=== PATIENT | male | born 1960 | race African-American/Black ===

== ENCOUNTER 2017-06-03 10:00 | Emergency (ER) | payer OTHER ==
[~2017-06-03] VITALS: Ht 177.8 cm; Wt 68.0 kg
[2017-06-03 10:30] VITALS: BP 129/91
--- NOTE | 2017-06-03 16:35 | NUR ---
PATIENT LEFT WITHOUT BEING SEEN BY DR. CRAVEN. NO FURTHER CARE PROVIDED FOR PATIENT.
== END 2017-06-03 16:35 | disposition left against medical advice (07) ==
LOC: MED 10:00
DX: R30.9 Painful micturition, unspecified (principal); Z53.21 Procedure and treatment not carried out due to patient leaving prior to being seen by health care provider

== ENCOUNTER 2017-09-12 10:58 | Emergency (ER) | payer OTHER ==
[~2017-09-12] VITALS: Ht 175.3 cm; Wt 63.5 kg
[2017-09-12 11:04] VITALS: BP 198/118
[2017-09-12 11:37] LABS: HEMATOCRIT 45.9 % (36-52); HEMOGLOBIN 14.5 g/dL (12.0-18.0); MEAN CORPUSCULAR HEMOGLOBIN 28 pg (27-31); MEAN CORPUSCULAR HGB CONC 32 g/dL (33-37); MEAN CORPUSCULAR VOLUME 88 fL (80-94); PLATELET COUNT (AUTO) 152 K/uL (140-450); RED CELL DISTRIBUTION WIDTH 13.4 % (11.6-13.7); WHITE BLOOD COUNT (AUTO) 5.2 K/uL (4.8-10.8)
--- NOTE | 2017-09-12 11:43 | NUR ---
Patient taken back to lobby from CT via wheelchair.
[2017-09-12 11:50] LABS: ANION GAP 8.6 (8-16); CARBON DIOXIDE 29.7 mmol/L (21-32); CREATININE 1.1 mg/dL (0.7-1.3); POTASSIUM 3.3 mmol/L (3.5-5.1)
[2017-09-12 11:51] LABS: LYMPHOCYTES % (MANUAL) 35 % (20-46); MONOCYTES % (MANUAL) 15 % (5-12)
[2017-09-12 11:52] LABS: EOSINOPHILS % (MANUAL) 2 % (0-4)
--- NOTE | 2017-09-12 11:56 | NUR ---
Patient taken to bed 09 via wheelchair.
[2017-09-12 11:57] LABS: ALBUMIN 3.6 g/dL (3.4-5.0); TOTAL BILIRUBIN 0.8 mg/dL (0.0-1.0)
--- NOTE | 2017-09-12 12:00 | NUR ---
Dr. Sanchez evaluating patient at bedside.
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
[2017-09-12] MEDS ORDERED: LIDOCAINE 1% 500 MG/50 ML VIAL INJ SCH (12:05)
[2017-09-12] MEDS ORDERED: POTASSIUM CHLORIDE 20% 40 MEQ/15 ML UDC PO ONE (12:10)
[2017-09-12 12:11] LABS: PROTHROMBIN TIME 11.8 secs (10.8-13.4)
[2017-09-12] MEDS ORDERED: LIDOCAINE 1% ***ER ONLY *** 50 ML ONE (12:28)
[2017-09-12 13:07] LABS: BARBITURATE, URINE NEG. ng/ml (NEG <=200); BENZODIAZEPINE, URINE NEG. ng/mL (NEG <=200); CANNABINOID, URINE POS. ng/mL (NEG <=50); COCAINE, URINE NEG. ng/mL (NEG <=300); OPIATE, URINE NEG. ng/mL (NEG <=2000); PHENCYCLIDINE SCREEN,URINE NEG. ng/mL (NEG <=25)
[2017-09-12] MEDS ORDERED: ONDANSETRON 4 MG/2 ML VIAL ONE (13:07)
[2017-09-12] MEDS ORDERED: ONDANSETRON 4 MG/2 ML VIAL IVP ONE (13:20)
[2017-09-12] MEDS ORDERED: MORPHINE SULFATE 4 MG/ML SYR IVP ONE (13:20)
[2017-09-12] MEDS ORDERED: NACL 0.9% 1,000 ML IV ONE (13:20)
--- NOTE | 2017-09-12 13:29 | NUR ---
PT'S BP IS 187/108;ER NOTIFIED;
--- NOTE | 2017-09-12 14:25 | NUR ---
Pt B/P 172/99; ERMD notified of patient status.
--- NOTE | 2017-09-12 14:48 | NUR ---
Patient to be transferred to [facility]. Is being transferred due to higher level of care. Receiving facility has accepting physician and available space. ER physician has signed transfer form. Patient or responsible republican has agreed to transfer and signed form. Patient belongings inventoried and will be sent with patient. Copy of nursing notes, lab reports, EKG, Physicians Orders and X-rays to be sent with patient. Report called to GILLIAN Booker at receiving facility. [facility] ambulance service has been called for transfer. ETA is 30-40min.
[2017-09-12 15:19] VITALS: BP 187/108
== END 2017-09-12 14:48 | disposition short-term general hospital (02) ==
LOC: MED 10:58
DX: S42.001A Fracture of unspecified part of right clavicle, initial encounter for closed fracture (principal); S01.111A Laceration without foreign body of right eyelid and periocular area, initial encounter; I60.8 Other nontraumatic subarachnoid hemorrhage; S09.8XXA Other specified injuries of head, initial encounter; E87.6 Hypokalemia; I10 Essential (primary) hypertension; Z88.0 Allergy status to penicillin; Z91.018 Allergy to other foods; V19.9XXA Pedal cyclist (driver) (passenger) injured in unspecified traffic accident, initial encounter; Y93.89 Activity, other specified; Y92.89 Other specified places as the place of occurrence of the external cause; Y99.8 Other external cause status
CPT/HCPCS: 12013; 36415; 70450; 73000; 73090; 80053; 80305; 84484; 85025; 85610; 85730; 96361; 96374; 96375; 99285; J2001; J2270; J2405; J7030